=== PATIENT | male | born 1960 | race Caucasian/White ===

== ENCOUNTER 2021-05-12 12:41 | Emergency (ER) | payer OTHER ==
[~2021-05-12] VITALS: Ht 175.3 cm; Wt 97.3 kg
[2021-05-12 13:27] LABS: BASOPHILS ABSOLUTE AUTO 0.03 K/mm3 (0.00-0.23); BASOPHILS PERCENT AUTO 1 % (0-2); EOSINOPHILS ABSOLUTE AUTO 0.13 K/mm3 (0.00-0.68); EOSINOPHILS PERCENT AUTO 2 % (0-6); Hemoglobin 13.8 g/dL (13.5-17.5); IMMATURE GRAN ABSOLUTE AUTO 0.03 K/mm3 (0.00-0.10); IMMATURE GRAN PERCENT AUTO 1 % (0-1); LYMPHOCYTES ABSOLUTE AUTO 1.44 K/mm3 (0.84-5.20); LYMPHOCYTES PERCENT AUTO 23 % (21-46); MONOCYTES ABSOLUTE AUTO 0.37 K/mm3 (0.16-1.47); MONOCYTES PERCENT AUTO 6 % (4-13); Mean Corpuscular HGB 29.4 pg (26.0-34.0); Mean Corpuscular HGB Conc 33.7 g/dL (31.5-36.5); Mean Corpuscular Volume 87 fL (80-100); Mean Platelet Volume 11.1 fL (9.1-12.4); NEUTROPHILS ABSOLUTE AUTO 4.23 K/mm3 (1.96-9.15); NEUTROPHILS PERCENT AUTO 68 % (41-73); Platelet Count 217 K/mm3 (150-400); RDW Coefficient Variation 11.9 % (11.7-14.2); RDW Standard Deviation 38.8 fL (35.1-46.3); White Blood Cell Count 6.23 K/mm3 (4.00-11.30)
[2021-05-12 13:58] LABS: Alanine Aminotransfer (ALT/SGP 31 U/L (12-78); Albumin, Blood 3.8 g/dL (3.4-5.0); Albumin/Globulin Ratio 1.2 (0.8-1.8); Alk Phos 99 U/L (50-136); Anion Gap 7 mmol/L (6-16); Aspartate Aminotrans (AST/SGOT 18 U/L (12-37); Bilirubin, Total 0.3 mg/dL (0.1-1.0); Blood Urea Nitrogen 18 mg/dL (8-24); Bun/Creatinine Ratio 18.3 (12.0-20.0); CO2, Blood 27 mmol/L (21-32); Calcium, Blood 8.6 mg/dL (8.5-10.1); Chloride, Blood 106 mmol/L (98-108); Creatinine, Blood 0.98 mg/dL (0.60-1.20); Globulin, Blood 3.3 g/dL (2.2-4.0); Glomerular Filtration Rate >60 (60-); Glucose, Blood 97 mg/dL (70-99); Potassium, Blood 4.2 mmol/L (3.5-5.5); Sodium, Blood 140 mmol/L (136-145); Total Protein, Blood 7.1 g/dL (6.4-8.2); Troponin I <0.015 ng/mL (0.000-0.040)
== END 2021-05-12 15:17 | disposition home or self-care (01) ==
LOC: ER 12:41
PROVIDERS: Physician Assistant
DX: R07.89 Other chest pain (principal); I10 Essential (primary) hypertension; Z79.899 Other long term (current) drug therapy
CPT/HCPCS: 71045; 80053; 84484; 85025; 93005; 93010; 99284-25

== ENCOUNTER 2024-08-31 12:55 | Inpatient (IN) | payer MEDICARE ==
[~2024-08-31] VITALS: Ht 175.3 cm; Wt 108.5 kg
[2024-08-31] VITALS (10 sets, daily range): BP systolic 138–157; BP diastolic 81–104
[2024-08-31] MEDS ORDERED: Heparin Sodium 5000 Units/ML 1ML MDV IV ONE (13:50)
[2024-08-31] MEDS ORDERED: Aspirin 325 MG Tab PO ONE (13:50)
[2024-08-31] MEDS ORDERED: Heparin Sodium 1000 Units/ML 10ML MDV ONE ×2 (13:57→14:56)
[2024-08-31] MEDS ORDERED: NS 2,000 ML IV ONE (13:57)
[2024-08-31] MEDS ORDERED: FentaNYL Citrate 50 MCG/ML 2 ML Injection ONE (13:57)
[2024-08-31] MEDS ORDERED: Midazolam HCl 1MG / ML 2ML Vial ONE (13:57)
[2024-08-31] MEDS ORDERED: Verapamil HCL 2.5 MG/ML 2ML Injection ONE (13:58)
[2024-08-31] MEDS ORDERED: NS 250 ML IV ONE (13:59)
[2024-08-31] MEDS ORDERED: Nitroglycerin 2 MG/20 ML BTL ONE (13:59)
[2024-08-31 14:13] LABS: BASOPHILS ABSOLUTE AUTO 0.03 K/mm3 (0.00-0.23); BASOPHILS PERCENT AUTO 1 % (0-2); EOSINOPHILS ABSOLUTE AUTO 0.13 K/mm3 (0.00-0.68); EOSINOPHILS PERCENT AUTO 2 % (0-6); Hematocrit 43.7 % (37.0-53.0); IMMATURE GRAN ABSOLUTE AUTO 0.04 K/mm3 (0.00-0.10); IMMATURE GRAN PERCENT AUTO 1 % (0-1); LYMPHOCYTES ABSOLUTE AUTO 1.43 K/mm3 (0.84-5.20); LYMPHOCYTES PERCENT AUTO 22 % (21-46); MONOCYTES ABSOLUTE AUTO 0.44 K/mm3 (0.16-1.47); MONOCYTES PERCENT AUTO 7 % (4-13); Mean Corpuscular HGB 29.8 pg (26.0-34.0); Mean Corpuscular HGB Conc 34.3 g/dL (31.5-36.5); Mean Corpuscular Volume 87 fL (80-100); Mean Platelet Volume 10.8 fL (9.1-12.4); NEUTROPHILS ABSOLUTE AUTO 4.34 K/mm3 (1.96-9.15); NEUTROPHILS PERCENT AUTO 68 % (41-73); Platelet Count 266 K/mm3 (150-400); RDW Coefficient Variation 12.7 % (11.7-14.2); RDW Standard Deviation 40.1 fL (35.1-46.3); Red Blood Cell Count 5.04 M/mm3 (4.30-5.90); White Blood Cell Count 6.41 K/mm3 (4.00-11.30)
[2024-08-31] MEDS ORDERED: Tirofiban HCL Monohydrate 3.75 MG/15 ML Vial ONE (14:18)
[2024-08-31] MEDS ORDERED: Phenylephrine HCl 100 MCG/ML-NS 10MLSYR (1MG/10ML) ONE (14:19)
[2024-08-31] MEDS ORDERED: Atropine Sulfate 0.1 MG/ML 10ML SYR ONE (14:19)
[2024-08-31] MEDS ORDERED: HydrALAZINE HCl 20 MG / ML 1ML Vial ONE (14:27)
[2024-08-31] MEDS ORDERED: Tirofiban HCL M-Hyd/NS 250 ML IV ONE (14:40)
[2024-08-31 14:46] LABS: Albumin, Blood 4.2 g/dL (3.4-5.0); Albumin/Globulin Ratio 1.1 (0.8-1.8); Bilirubin, Total 0.4 mg/dL (0.1-1.0); Bun/Creatinine Ratio 15.4 (12.0-20.0); Calcium, Blood 9.4 mg/dL (8.5-10.1); Creatinine, Blood 1.23 mg/dL (0.60-1.20); Globulin, Blood 3.8 g/dL (2.2-4.0); Potassium, Blood 4.2 mmol/L (3.5-5.5)
[2024-08-31] MEDS ORDERED: Magnesium Hydroxide Conc 10 ML UDC PO PRN (14:55)
[2024-08-31] MEDS ORDERED: Ondansetron 4 MG TAB PO PRN (14:55)
[2024-08-31] MEDS ORDERED: Bisacodyl 10 MG Supp PR PRN (15:00)
[2024-08-31] MEDS ORDERED: FLU VACC TS2024-25(6MOS UP)/PF 45 MCG/0.5 ML SYRINGE IM SCH (15:00)
[2024-08-31] MEDS ORDERED: TraZODone HCl 50 MG Tab PO PRN (15:00)
[2024-08-31] MEDS ORDERED: Acetaminophen 325 MG TABLET PO PRN (15:05)
[2024-08-31] MEDS ORDERED: OxyCODONE HCL 5 MG TAB PO PRN (15:05)
[2024-08-31] MEDS ORDERED: Heparin Sodium,Porcine 5,000 UNIT/0.5 ML SDV SC ONE (15:44)
[2024-08-31] MEDS ORDERED: Ticagrelor 90 MG TABLET PO ONE (15:44)
[2024-08-31] MEDS ORDERED: Diovan320 MG PO (16:21)
[2024-08-31] MEDS ORDERED: METF500 PO (16:22)
[2024-08-31] MEDS ORDERED: ATOR10 PO (16:22)
[2024-08-31] MEDS ORDERED: METO25 PO (16:22)
[2024-08-31] MEDS ORDERED: HYDCHL25 PO (16:23)
[2024-08-31] MEDS ORDERED: VITAMIN D325 MC3 PO (16:23)
[2024-08-31] MEDS ORDERED: Insulin Human Lispro 100 Units/ML 3ML Syringe SC SCH (16:30)
[2024-08-31] MEDS ORDERED: HydrALAZINE HCl 20 MG / ML 1ML Vial IV PRN (16:35)
--- NOTE | 2024-08-31 17:49 | NUR ---
ADMIT PT ARRIVED TO ICU 14 VIA BED. PT ALERT AND ORIENTED. TR BAND ON R WRIST. SITE IS C/D/I, SOFT, NO HEMATOMA. PT EDUCATED ON ACTIVITY RESTRICTIONS REGARDING HIS R ARM. PT'S BROUGHT PT MEDICATIONS FROM HOME SO MED REC COMPLETED FROM THOSE. AGGRASTAT INFUSING PER DR. DE GUZMAN'S ORDERS. PLAN OF CARE REVIEWED WITH PT AND HIS .
[2024-08-31] MEDS ORDERED: Metoprolol Tartrate 25 MG Tab PO SCH (21:00)
[2024-08-31] MEDS ORDERED: Lactobacil 2-S.Thermo-Bifido 1 1 Cap PO SCH (21:00)
[2024-08-31] MEDS ORDERED: Famotidine 20 MG Tab PO SCH (21:00)
[2024-09-01] VITALS (14 sets, daily range): BP systolic 105–156; BP diastolic 72–141
[2024-09-01 03:52] LABS: Hematocrit 38.9 % (37.0-53.0); Hemoglobin 13.5 g/dL (13.5-17.5); Mean Corpuscular HGB 29.6 pg (26.0-34.0); Mean Corpuscular HGB Conc 34.7 g/dL (31.5-36.5); Mean Corpuscular Volume 85 fL (80-100); Mean Platelet Volume 10.8 fL (9.1-12.4); Platelet Count 241 K/mm3 (150-400); RDW Coefficient Variation 12.9 % (11.7-14.2); RDW Standard Deviation 39.8 fL (35.1-46.3); Red Blood Cell Count 4.56 M/mm3 (4.30-5.90); White Blood Cell Count 8.08 K/mm3 (4.00-11.30)
[2024-09-01 04:17] LABS: Alanine Aminotransfer (ALT/SGP 47 U/L (12-78); Albumin, Blood 3.8 g/dL (3.4-5.0); Albumin/Globulin Ratio 1.2 (0.8-1.8); Alk Phos 88 U/L (50-136); Anion Gap 11 mmol/L (3-11); Aspartate Aminotrans (AST/SGOT 143 U/L (12-37); Bilirubin, Total 0.4 mg/dL (0.1-1.0); Blood Urea Nitrogen 15 mg/dL (8-24); CHOL/HDL RATIO 5.6; CO2, Blood 25 mmol/L (21-32); Calcium, Blood 8.8 mg/dL (8.5-10.1); Chloride, Blood 106 mmol/L (98-108); Cholesterol 191 mg/dL (50-200); Creatinine, Blood 1.07 mg/dL (0.60-1.20); Globulin, Blood 3.3 g/dL (2.2-4.0); Glomerular Filtration Rate 77 (60-); Glucose, Blood 108 mg/dL (70-99); HDL Cholesterol 34 mg/dL (>39); LDL/HDL RATIO 2.8; Low Density Lipoprotein Chol 95 mg/dL (0-110); Magnesium, Blood 2.1 mg/dL (1.6-2.4); Potassium, Blood 3.4 mmol/L (3.5-5.5); Sodium, Blood 139 mmol/L (136-145); Total Protein, Blood 7.1 g/dL (6.4-8.2); Triglycerides 310 mg/dL (30-160); Very Low Density Lipoprot Chol 62 mg/dL (6-32)
[2024-09-01] MEDS ORDERED: Potassium Chloride 20 MEQ TabCR PO ONE (04:55)
--- NOTE | 2024-09-01 06:04 | NUR ---
SHIFT SUMMARY PT IS A/OX4, RESPONDS ANDS CALLS APPROPRIATLY. ABLE TO MAKE NEEDS KNOWN. S/P PCI W/ STENTS, ON CLOTHES SHAKER, HR 60-70'S, MAPS > 65, DENIES P/PRESSURE. TR BAND REMOVED AT 0100, TEGADERM AND ARMBOARD IN PLACE TO R WRIST, NO HEMATOMA UPON ASSESSMENT. EKG DONE THIS AM. ON ROOM AIR, SATS > 95%, SOME C/O SOB EARLIER THIS SHIFT BUT HAS SINCE RESOLVED. UP AT BEDISDE TO USE URINAL INDEPENDENTLY, GOOD UOP THIS SHIFT. NO COMPLAINTS OF PAIN T/O SHIFT. IV'S ARE SALINE LOCKED. NO ACUTE EVENTS. CALL LIGHT IN REACH.
[2024-09-01] MEDS ORDERED: Ticagrelor 90 MG TABLET PO SCH (07:00)
--- NOTE | 2024-09-01 07:26 | NUR ---
ASSUMPTION OF CARE: ASSUMED CARE OF PATIENT. PATIENT RESTING SOUNDLY. NO SIGNS OR SYMPTOMS OF PAIN OR DISCOMFORT. PATIENT STABLE ON ROOM AIR WITH SPO2 > 94%. VITALS STABLE WITH HR IN THE 60S-70S AND MAPS >65. TR BAND HAS BEEN RECOVERED AND ARM BOARD IS IN PLACE ON THE RIGHT FOREARM. CALL LIGHT WITHIN REACH.
[2024-09-01] MEDS ORDERED: Atorvastatin 40 MG Tab PO SCH (09:00)
[2024-09-01] MEDS ORDERED: Aspirin 81 MG Chew PO SCH (09:00)
[2024-09-01] MEDS ORDERED: Heparin Sodium 5000 Units/ML 1ML MDV SC SCH (09:00)
[2024-09-01] MEDS ORDERED: ASPI81CH PO (16:45)
[2024-09-01] MEDS ORDERED: EFFIENT10 MG PO ×2 (16:46)
--- NOTE | 2024-09-01 17:07 | NUR ---
DISCHARGE SUMMARY: PATIENT DENIED PAIN OR DISCOMFORT THROUGHOUT THE SHIFT. PATIENT REPORTED SOME SHORTNESS OF BREATH AT TIMES WITH SLEEP. PATIENT REPORTED THAT HE IS GOING TO CONTINUE TO WORK ON GETTING A SLEEP STUDY COMPLETED. PATIENT DENIED CHEST PAIN OR DISCOMFORT. PATIENT AMBULATORY WITHOUT CHANGES TO PHARMACIST APPRENTICE. PATIENT DENIED CHEST PAIN AND PRESSURE WITH REST AND ACTIVITY. VITALS STABLE WITH MAPS >65. HR IN THE 70S. PATIENT REMAINED STABLE ON ROOM AIR WITH SPO2 >94%. PATIENT ABLE TO TOLERATE PO WITHOUT NAUSEA OR DISCOMFORT. AM EKG PERFORMED AROUND 0500 AND ECHO COMPLETED IN THE ROOM AROUND 0900. PATIENT READY FOR DISCHARGE PER MD ORDERS. PATIENT'S OUT OF POCKET EXPENSE FOR [facility] WAS UNAFFORDABLE FOR THE PATIENT. DR. DE GUZMAN AWARE AND NEW MEDICATION ORDERED. DISCHARGE RX FAXED TO [facility] PER REQUEST. DISCHARGE EDUCATION AND INSTRUCTIONS PROVIDED TO THE PATIENT AND HIS . PATIENT RECEIVED DIET EDUCATION FROM HOSPITAL FINAL APPLICATION REVIEWER. ALL QUESTIONS AND CONCERNS ADDRESSED.
--- NOTE | 2024-09-01 17:59 | NUR ---
PRESUGREL: [facility] DOES NOT HAVE PRESUGREL ON HAND. NOTIFIED BY THE PATIENT. ABLE TO FIND A LOCAL PHARMACY THAT DOES HAVE PRESUGREL ([facility]). PATIENT NOTIFIED AND HE WILL BE ABLE TO [employer] MANUFACTURING OPERATOR THE PRESCRIPTION.
== END 2024-09-01 17:07 | disposition home or self-care (01) | DRG 322 ==
LOC: ER 12:55 → ICUE 14:08
PROVIDERS: Emergency Medicine; Hospitalist; ADMIT Student in an Organized Health Care Education/Training Program
PROC: 027035Z Dilation of Coronary Artery, One Artery with Two Drug-eluting Intraluminal Devices, Percutaneous Approach (ICD-10-PCS; principal; 2024-08-31)
PROC: 02C03ZZ Extirpation of Matter from Coronary Artery, One Artery, Percutaneous Approach (ICD-10-PCS; 2024-08-31)
PROC: B2111ZZ Fluoroscopy of Multiple Coronary Arteries using Low Osmolar Contrast (ICD-10-PCS; 2024-08-31)
PROC: 4A023N7 Measurement of Cardiac Sampling and Pressure, Left Heart, Percutaneous Approach (ICD-10-PCS; 2024-08-31)
DX: I21.19 ST elevation (STEMI) myocardial infarction involving other coronary artery of inferior wall (principal); I50.22 Chronic systolic (congestive) heart failure; E11.9 Type 2 diabetes mellitus without complications; E78.5 Hyperlipidemia, unspecified; E66.9 Obesity, unspecified; K21.9 Gastro-esophageal reflux disease without esophagitis; Z85.72 Personal history of non-Hodgkin lymphomas; Z87.19 Personal history of other diseases of the digestive system; H54.62 Unqualified visual loss, left eye, normal vision right eye; F17.220 Nicotine dependence, chewing tobacco, uncomplicated; I11.0 Hypertensive heart disease with heart failure; I25.5 Ischemic cardiomyopathy; Z87.01 Personal history of pneumonia (recurrent); Z68.35 Body mass index [BMI] 35.0-35.9, adult
CPT/HCPCS: 36415; 76937; 80053; 80061; 82947; 83036; 83735; 84484; 85025; 85027; 85347; 92973; 92978; 93005; 93010; 93306; 93458; 94760; 96374; 97116; 97162; 99152; 99153; 99285-25; A9270; C1725; C1753; C1757; C1769; C1874; C1887; C1894; C9606; J0360; J0461; J1644; J2250; J2371; J3010; J3246; J7030; J7050; Q9967